=== PATIENT | male | born 1990 | race Caucasian/White ===

== ENCOUNTER → 2019-03-18 14:59 | Outpatient (CLI) | payer BC, SELFPAY ==
[2019-03-18 10:54] VITALS: BMI 26.1
== END ==
LOC: LABSPEC 15:03
PROVIDERS: Family Provider Family Medicine; PCP Family Medicine; Referring Provider Physician Assistant Surgical; Visit Provider Physician Assistant Surgical
DX: J02.9 Acute pharyngitis, unspecified (principal)
CPT/HCPCS: 87070